=== PATIENT | female | born 1940 | race Caucasian/White ===

== ENCOUNTER 2017-07-26 08:57 | Observation (INO) | payer MEDICARE, BC ==
[2017-07-26] MEDS ORDERED: ASPIRIN 81 MG CHEWABLE TABLET PO ONE (09:17)
[2017-07-26] MEDS ORDERED: NITROGLYCERIN 0.4MG SL TABLET #25 BTL SL PRN ×2 (09:17→13:50)
[2017-07-26 09:35] LABS: BASO % 0.7 % (0-6); EOS % 2.6 % (0-6); GRAN % 68.2 % (47-80); HEMATOCRIT 31.7 % (35.0-47.0); HEMOGLOBIN 10.6 gm/dl (11.6-16.0); LYMPH % 18.8 % (16-45); MEAN CELL VOLUME 97.5 fl (81-97); MEAN CORPUSCULAR HEMOGLOBIN 32.6 pg (27-33); MEAN CORPUSCULAR HGB CONC 33.4 g/dl (32-36); MEAN PLATELET VOLUME 8.4 fl (7.4-10.4); MONO % 9.7 % (0-9); PLATELET COUNT 252 K/uL (130-400); RED BLOOD COUNT 3.25 M/uL (3.80-5.40); RED CELL DISTRIBUTION WIDTH 14.5 % (11.5-14.5); WHITE BLOOD COUNT W/O DIFF 4.3 K/uL (4.2-12.2)
[2017-07-26 09:45] LABS: BLOOD UREA NITROGEN 16 mg/dL (8-23); CREATININE 0.8 mg/dL (0.5-0.9); EST GLOMERULAR FILTRATION RATE > 60 mL/min
[2017-07-26 09:46] LABS: INR 2.41; PROTHROMBIN TIME (PATIENT) 26.3 SECONDS (9.5-12.1)
[2017-07-26 09:48] LABS: GLUCOSE,RANDOM 109 mg/dL (74-109)
[2017-07-26 09:51] LABS: CREATINE PHOSPHOKINASE 145 U/L (26-192)
[2017-07-26 09:53] LABS: CKMB 3.2 ng/mL (<3.77)
--- NOTE | 2017-07-26 11:32 | Emergency Department Record ---
History of Present Illness - General Chief Complaint: Chest Pain Stated Complaint: LEFT SHOULDER/ARM PAIN Time Seen by Provider: 07/26/17 09:03 Source: Patient Mode of Arrival: Ambulatory Limitations: No limitations - History of Present Illness Initial Comments: pt has been having intermittant cp for a week that radiates down her arm. she has never had anything like this before. she has no n/sob/sweats. she has had a pacer for 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 Complaint: Chest pain Onset/Timin -: Week(s) Onset: Other Pain Location: Substernal, Left chest, Right chest Pain Radiation: LUE Consistency: Intermittent Improves With: Nothing Worsens With: Nothing Treatments Prior to Arrival: None - Related Data Previous Rx's Medication Instructions Recorded Lisinopril [Zestril] 10 mg PO DAILY #30 tablet 10/03/14 Allergies Allergy/AdvReac Type Severity Reaction Status Date / Time indapamide [From LOZOL] Allergy Intermediate RASH Verified 07/12/16 10:36 propoxyphene napsylate Allergy Mild RASH Verified 07/12/16 10:36 [From DARVOCET-N 100] Travel Screening - Travel/Exposure Within Last 30 Days Have you traveled within the last 30 days?: No - Travel/Exposure Within Last Year Have you traveled outside the [place] in the last year?: No - Additonal Travel Details Have you been exposed to anyone with a communicable illness?: No - Travel Symptoms Symptom Screening: None Review of Systems Reviewed: No additional complaints except as noted below Constitutional: Reports: As per HPI. Denies: Chills, Fever, Malaise, Night sweats, Weakness, Weight change Eyes: Reports: As per HPI. Denies: Eye discharge, Eye pain, Photophobia, Vision change ENT: Reports: As per HPI. Denies: Congestion, Dental pain, Ear pain, Epistaxis , Hearing loss, Throat pain Respiratory: Reports: As per HPI. Denies: Cough, Dyspnea, Hemoptysis, Stridor, Wheezes Cardiovascular: Reports: As per HPI. Denies: Arrhythmia, Chest pain, Dyspnea on exertion, Edema, Murmurs, Orthopnea, Palpitations, Paroxysmal nocturnal dyspnea, Rheumatic Fever, Syncope Endocrine: Reports: As per HPI. Denies: Fatigue, Heat or cold intolerance, Polydipsia, Polyuria Gastrointestinal: Reports: As per HPI. Denies: Abdominal pain, Constipation, Diarrhea, Hematemesis, Hematochezia, Melena, Nausea, Vomiting Genitourinary: Reports: As per HPI. Denies: Abnormal menses, Discharge, Dyspareunia, Dysuria, Frequency, Hematuria, Incontinence, Retention, Urgency Musculoskeletal: Reports: As per HPI. Denies: Arthralgia, Back pain, Gout, Joint swelling, Myalgia, Neck pain Skin: Reports: As per HPI. Denies: Bruising, Change in color, Change in hair/ nails, Lesions, Pruritus, Rash Neurological: Reports: As per HPI. Denies: Abnormal gait, Confusion, Headache, Numbness, Paresthesias, Seizure, Tingling, Tremors, Vertigo, Weakness Psychiatric: Reports: As per HPI. Denies: Anxiety, Auditory hallucinations, Depression, Homicidal thoughts, Suicidal thoughts, Visual hallucinations Hematological/Lymphatic: Reports: As per HPI. 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 - RESPIRATORY Hx Respiratory Disorders: No - CARDIOVASCULAR Hx Cardio Disorders: Yes Hx Chest Pain: Yes Hx CHF: Yes Hx Pacemaker/Defib: Yes Comment:: afib - NEURO Hx Neuro Disorders: No - GI Hx GI Disorders: No - Hx Genitourinary Disorders: Yes Hx UTI: Yes - ENDOCRINE Hx Endocrine Disorders: Yes Hx Thyroid Disease: Yes (hypo) - MUSCULOSKELETAL Hx Musculoskeletal Disorders: Yes Hx Arthritis: Yes Comment:: injections in back - PSYCH Hx Psych Problems: No - HEMATOLOGY/ONCOLOGY Hx Hematology/Oncology Disorders: No Family Medical History Any Significant Family History?: No Hx Heart Disease: Father, Mother Physical Exam - General General Appearance: Alert, Oriented x3, Cooperative, Mild distress - Head Head exam: Normal inspection - Eye Eye exam: Normal appearance, PERRL, EOMI Pupils: Normal accommodation - ENT ENT exam: Normal exam, Mucous membranes moist, Normal external ear exam, Normal orophraynx Ear exam: Normal external inspection. negative: External canal tenderness Nasal Exam: Normal inspection. negative: Discharge, Sinus tenderness Mouth exam: Normal external inspection, Tongue normal Teeth exam: Normal inspection. negative: Dental caries Throat exam: Normal inspection. negative: Tonsillar erythema, Tonsillar exudate - Neck Neck exam: Normal inspection, Full ROM. negative: Tenderness - Respiratory Respiratory exam: Normal lung sounds bilaterally. negative: Respiratory distress - Cardiovascular Cardiovascular Exam: Regular rate, Normal rhythm, Normal heart sounds - GI/Abdominal GI/Abdominal exam: Soft, Normal bowel sounds. negative: Tenderness - Rectal Rectal exam: Deferred - exam: Deferred - Extremities Extremities exam: Normal inspection, Full ROM, Normal capillary refill. negative: Tenderness - Back Back exam: Reports: Normal inspection, Full ROM. Denies: Muscle spasm, Rash noted, Tenderness - Neurological Neurological exam: Alert, CN II-XII intact, Normal gait, Oriented X3 - Psychiatric Psychiatric exam: Normal affect, Normal mood - Skin Skin exam: Dry, Intact, Normal color, Warm Course Vital Signs 07/26/17 07/26/17 07/26/17 09:02 09:31 09:37 Temperature 98.3 F Pulse Rate 73 Pulse Rate [ 71 73 Pulse Ox Probe] Respiratory 20 18 18 Rate Blood Pressure 177/99 Blood Pressure 152/84 99/66 [Left Arm] Pulse Ox 98 97 97 07/26/17 09:43 Temperature Pulse Rate Pulse Rate [ 70 Pulse Ox Probe] Respiratory 18 Rate Blood Pressure Blood Pressure 137/81 [Left Arm] Pulse Ox 97 - Reevaluation(s) Reevaluation #1: 07/26/17 11:30 pts pain got better w ntg. pressure dropped to 95/, fluid bolus given Medical Decision Making - Lab Data Result diagrams: 07/26/17 09:24 07/26/17 09:24 Lab Results 07/26/17 07/26/17 07/26/17 Range/Units 09:24 09:24 09:24 WBC 4.3 (4.2-12.2) K/uL RBC 3.25 L (3.80-5.40) M/uL Hgb 10.6 L (11.6-16.0) gm/dl Hct 31.7 L (35.0-47.0) % MCV 97.5 H (81-97) fl MCH 32.6 (27-33) pg MCHC 33.4 (32-36) g/dl RDW 14.5 (11.5-14.5) % Plt Count 252 (130-400) K/uL MPV 8.4 (7.4-10.4) fl Gran % 68.2 (47-80) % Lymphocytes % 18.8 (16-45) % Monocytes % 9.7 H (0-9) % Eosinophils % 2.6 (0-6) % Basophils % 0.7 (0-6) % PT (9.5-12.1) SECONDS INR D-Dimer 3.95 H (0-0.59) mg/L FEU Sodium 137 (136-145) mmol/L Potassium 3.7 (3.4-4.5) mmol/L Chloride 98 (98-107) mmol/L Carbon Dioxide 24.0 (22-29) mmol/L Anion Gap 15.0 (7-16) BUN 16 (8-23) mg/dL Creatinine 0.8 (0.5-0.9) mg/dL Estimated GFR > 60 mL/min Random Glucose 109 (74-109) mg/dL Calcium 9.0 (8.8-10.2) mg/dL Creatine Kinase 145 (26-192) U/L CK-MB (CK-2) 3.2 (<3.77) ng/mL Troponin T < 0.010 (0-0.010) ng/mL 07/26/17 Range/Units 09:24 WBC (4.2-12.2) K/uL RBC (3.80-5.40) M/uL Hgb (11.6-16.0) gm/dl Hct (35.0-47.0) % MCV (81-97) fl MCH (27-33) pg MCHC (32-36) g/dl RDW (11.5-14.5) % Plt Count (130-400) K/uL MPV (7.4-10.4) fl Gran % (47-80) % Lymphocytes % (16-45) % Monocytes % (0-9) % Eosinophils % (0-6) % Basophils % (0-6) % PT 26.3 H (9.5-12.1) SECONDS INR 2.41 D-Dimer (0-0.59) mg/L FEU Sodium (136-145) mmol/L Potassium (3.4-4.5) mmol/L Chloride (98-107) mmol/L Carbon Dioxide (22-29) mmol/L Anion Gap (7-16) BUN (8-23) mg/dL Creatinine (0.5-0.9) mg/dL Estimated GFR mL/min Random Glucose (74-109) mg/dL Calcium (8.8-10.2) mg/dL Creatine Kinase (26-192) U/L CK-MB (CK-2) (<3.77) ng/mL Troponin T (0-0.010) ng/mL Disposition Disposition: Admit Clinical Impression: Chest pain Qualifiers: Chest pain type: other chest pain Qualified Code(s): R07.89 - Other chest pain ; R07.8 - Other chest pain Disposition: Still a Patient at [facility] Decision to Admit: Admit from ER Decision to Admit Date: 07/26/17 Decision to Admit Time: 11:33 Quality - Quality Measures Quality Measures: N/A - Blood Pressure Screening Does Patient Have Any of the Following: Active Dx of HTN Blood Pressure Classification: Hypertensive Reading Systolic Measurement: 177 Diastolic Measurement: 99 Screening for High Blood Pressure: Patient Exclusion, Hx of HTN [G9744]
--- NOTE | 2017-07-26 15:06 | CT ANGIOGRAM REPORT ---
EXAM: CHEST CTA WITH CONTRAST WITH POST PROCESSING FOR PE HISTORY: CHEST PAIN, ELEVATED D-DIMER, POSSIBLE PE. TECHNIQUE: CTA of the chest was performed following the intravenous administration of 63 ml of Omnipaque 350 as the IV contrast. Post processing on an independent workstation was performed with multiple 3D MIP series obtained. Comparison: Prior chest CT dated 04/28/11. FINDINGS: No definite PE identified. No thoracic aortic aneurysm or dissection is seen. Surgical clips are again seen in the gallbladder fossa consistent with prior cholecystectomy. Small hiatal hernia. No definite hilar or mediastinal adenopathy identified. Some coronary artery calcification is present. No pleural effusion evident. Small amount of pericardial fluid in the superior pericardial recess. Hypertrophic spurring in the spine. There is a battery pack in the left anterior chest wall consistent with a pacemaker with associated electrode leads extending into the right side of the heart. These are new compared to the prior study. IMPRESSION: 1. NO DEFINITE PE IDENTIFIED. 2. PACEMAKER IN PLACE, NEW SINCE 04/28/11. 3. SMALL HIATAL HERNIA. 4. POSTOP CHOLECYSTECTOMY. JOB NUMBER: [id number] MTDD
[2017-07-26] MEDS ORDERED: TYLENOL 500 MG PO PRN (16:31)
[2017-07-26 17:57] LABS: CKMB 2.7 ng/mL (<3.77)
[2017-07-26] MEDS ORDERED: WARFARIN 5 MG TAB PO SCH (22:00)
[2017-07-26] MEDS ORDERED: ATORVASTATIN 20 MG TABLET PO SCH (22:00)
--- NOTE | 2017-07-26 22:06 | History & Physical ---
History of Present Illness - Date of Service Date of Service for History & Physical: 07/26/17 - History of Present Illness Admitting Diagnosis: chest pain History of Present Illness: 77yo female with CC of pain in her left arm. she has history of CHF, afib, pacemaker in place, hypothyroidism, arthritis. Patient states for the past week she has had intermittent pain in her left arm. She has chronic left shoulder pain due to arthritis and has an ortho appointment already set up to discuss replacement. she says sometime this week she developed some new pain lower in her left forearm that was aching. She also was having some intermittent sharp, fleeting pain that she said would start in the right side of her chest and radiate briefly to the left. She decided to come in to the ED because of the new left forearm pain. While in the ED, patient had EKG that was unchanged from previous and no ST changes. 1st set of CE returned wnl. Hgb of 10.6, CMP unremarkable. Her Ddimer was elevated at 3.95 and she underwent CTA of the chest which showed mild coronary artery calcifications, small hiatal hernia and pacemaker. She was admitted for serial enzymes. 07/26/17- Patient states she is feeling well now. she denies any more pain in her forearm and that her pain in the left shoulder is improved with tylenol. she denies any chest pain, shortness of breath, upper respiratory symptoms. She has not had any leg swelling or difficulty lying or sleeping flat. 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 Madsen, on 07/31/17. pcp: emily cardio: Dr. Madsen Travel Screening - Travel/Exposure Within Last 30 Days Have you traveled within the last 30 days?: No - Travel/Exposure Within Last Year Have you traveled outside the [place] in the last year?: No - Additonal Travel Details Have you been exposed to anyone with a communicable illness?: No - Travel Symptoms Symptom Screening: None Review of Systems Constitutional: Reports: As per HPI. Denies: Chills, Fever, Malaise, Night sweats, Weakness, Weight change Eyes: Reports: As per HPI. Denies: Eye discharge, Eye pain, Photophobia, Vision change ENT: Reports: As per HPI. Denies: Congestion, Dental pain, Ear pain, Epistaxis , Hearing loss, Throat pain Respiratory: Reports: As per HPI. Denies: Cough, Dyspnea, Hemoptysis, Stridor, Wheezes Cardiovascular: Reports: As per HPI. Denies: Arrhythmia, Chest pain, Dyspnea on exertion, Edema, Murmurs, Orthopnea, Palpitations, Paroxysmal nocturnal dyspnea, Rheumatic Fever, Syncope Endocrine: Reports: As per HPI. Denies: Fatigue, Heat or cold intolerance, Polydipsia, Polyuria Gastrointestinal: Reports: As per HPI. Denies: Abdominal pain, Constipation, Diarrhea, Hematemesis, Hematochezia, Melena, Nausea, Vomiting Genitourinary: Reports: As per HPI. Denies: Abnormal menses, Discharge, Dyspareunia, Dysuria, Frequency, Hematuria, Incontinence, Retention, Urgency Musculoskeletal: Reports: As per HPI. Denies: Arthralgia, Back pain, Gout, Joint swelling, Myalgia, Neck pain Skin: Reports: As per HPI. Denies: Bruising, Change in color, Change in hair/ nails, Lesions, Pruritus, Rash Neurological: Reports: As per HPI. Denies: Abnormal gait, Confusion, Headache, Numbness, Paresthesias, Seizure, Tingling, Tremors, Vertigo, Weakness Psychiatric: Reports: As per HPI. Denies: Anxiety, Auditory hallucinations, Depression, Homicidal thoughts, Suicidal thoughts, Visual hallucinations Hematological/Lymphatic: Reports: As per HPI. 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 - RESPIRATORY Hx Respiratory Disorders: No - CARDIOVASCULAR Hx Cardio Disorders: Yes Hx Chest Pain: Yes Hx CHF: Yes Hx Pacemaker/Defib: Yes Comment:: afib - NEURO Hx Neuro Disorders: No - GI Hx GI Disorders: No - Hx Genitourinary Disorders: Yes Hx UTI: Yes - ENDOCRINE Hx Endocrine Disorders: Yes Hx Thyroid Disease: Yes (hypo) - MUSCULOSKELETAL Hx Musculoskeletal Disorders: Yes Hx Arthritis: Yes Comment:: injections in back - PSYCH Hx Psych Problems: No - HEMATOLOGY/ONCOLOGY Hx Hematology/Oncology Disorders: No Family Medical History Any Significant Family History?: Yes Hx Heart Disease: Father, Mother H&P Meds/Allergies - Allergies Allergies: Allergies Allergy/AdvReac Type Severity Reaction Status Date / Time indapamide [From LOZOL] Allergy Intermediate RASH Verified 07/12/16 10:36 propoxyphene napsylate Allergy Mild RASH Verified 07/12/16 10:36 [From DARVOCET-N 100] - Home Medications Home Medications Medication Instructions Recorded Confirmed Last Taken Lisinopril [Lisinopril] 10 mg PO QHS 07/26/17 07/26/17 Unknown - Active Medications Active Medications: Current Medications Amiodarone HCl (Pacerone) 200 mg PO DAILY [facility] Aspirin (Ecotrin (Ec)) 325 mg PO DAILY [facility] Atorvastatin Calcium (Lipitor) 20 mg PO QHS [facility] Carvedilol (Coreg) 3.125 mg PO BID [facility] Levothyroxine Sodium (Synthroid) 75 mcg PO DAILYTHY [facility] Lisinopril (Zestril) 10 mg PO QHS [facility] Nitroglycerin (Nitrostat 0.4mg) 0.4 mg SL Q5MIN PRN PRN Reason: CHEST PAIN Patient Own Med: (Tylenol 500mg) 2 each PO Q6H PRN PRN Reason: Pain - General Last Admin: 07/26/17 16:33 Dose: 2 each Warfarin Sodium (Coumadin) 2.5 mg PO QHS [facility] Physical Exam - Vital Signs Vital Signs: Vital Signs - Last 24 Hrs Temp Pulse Pulse Resp BP BP Pulse Ox 07/26/17 21:00 97.9 F 70 20 138/68 94 L 07/26/17 16:07 18 07/26/17 15:50 98.1 F 72 16 126/71 97 07/26/17 14:15 98.1 F 73 18 161/88 96 07/26/17 13:50 97.2 F L 76 18 183/95 98 07/26/17 13:11 70 16 157/85 98 - General General Appearance: Alert, Oriented x3, Cooperative, No acute distress Limitations: No limitations - Head Head exam: Normal inspection - Eye Eye exam: Normal appearance, PERRL, EOMI Pupils: Normal accommodation - ENT ENT exam: Normal exam, Mucous membranes moist, Normal external ear exam, Normal orophraynx Ear exam: Normal external inspection. negative: External canal tenderness Nasal Exam: Normal inspection. negative: Discharge, Sinus tenderness Mouth exam: Normal external inspection, Tongue normal Teeth exam: Normal inspection. negative: Dental caries Throat exam: Normal inspection. negative: Tonsillar erythema, Tonsillar exudate - Neck Neck exam: Normal inspection, Full ROM. negative: Tenderness - Respiratory Respiratory exam: Normal lung sounds bilaterally. negative: Respiratory distress - Cardiovascular Cardiovascular Exam: Regular rate, Normal rhythm (paced), Systolic murmur - GI/Abdominal GI/Abdominal exam: Soft, Normal bowel sounds. negative: Tenderness - Rectal Rectal exam: Deferred - exam: Deferred - Extremities Extremities exam: Normal inspection, Full ROM, Normal capillary refill. negative: Tenderness - Back Back exam: Reports: Normal inspection, Full ROM. Denies: Muscle spasm, Rash noted, Tenderness - Neurological Neurological exam: Alert, CN II-XII intact, Normal gait, Oriented X3 - Psychiatric Psychiatric exam: Normal affect, Normal mood - Skin Skin exam: Dry, Intact, Normal color, Warm Results - Labs Result Diagrams: 07/26/17 09:24 07/26/17 09:24 Labs Last 24 Hours: Laboratory Results - last 24 hr 07/26/17 17:32 CK-MB (CK-2) 2.7 Troponin T < 0.010 VTE H&P Assessment - Risk for VTE Risk for VTE: Yes Risk Level: High Risk Assessment Date: 07/26/17 Risk Assessment Time: 22:08 VTE Orders Placed or Will Be Placed: Yes Plan - Detailed Diagnosis and Plan (1) Chest pain, rule out acute myocardial infarction Current Visit: Yes Status: Acute Base Code: R07.9 - CHEST PAIN, UNSPECIFIED Comment: 07/26/17- Patient is currently pain free, and was having left sided shoulder pain rather than true chest pain. EKG was negative for ischemic changes and unchanged from previous. 1st and 2nd set of CE returned within normal. DDimer was elevated at 3.95 so patient underwent CTA of the chest which showed mild coronary artery calcifications along with small hiatal hernia and pacemaker in place. -continue tele -continue serial enzymes -vitals q8H (2) DVT prophylaxis Current Visit: No Status: Acute Base Code: [id number] - Comment: 07/26/17- continue patient's home coumadin (3) Full code status Current Visit: No Status: Acute Base Code: Z78.9 - OTHER SPECIFIED HEALTH STATUS Comment: 07/26/17- Patient is full code
[2017-07-26] MEDS: CARVEDILOL 3.125 MG TABLET PO SCH (22:29)
[2017-07-27 01:43] LABS: CKMB 2.2 ng/mL (<3.77)
[2017-07-27] MEDS ORDERED: LEVOTHYROXINE SODIUM 75 MCG TABLET PO SCH (07:00)
--- NOTE | 2017-07-27 08:10 | Discharge Summary ---
Providers Discharge Summary Date: 07/27/17 Date of admission: 07/26/17 12:42 Expected Date of Discharge: 07/27/17 Attending physician: Alexander Kasper Primary care physician: VINICIUS GAXIOLA D.O. Physical Exam - Vital Signs Vital Signs: Vital Signs - Last 24 Hrs Temp Pulse Pulse Resp BP BP Pulse Ox 07/27/17 07:51 97.9 F 71 18 156/85 96 07/27/17 05:00 98.4 F 71 16 158/85 96 07/27/17 00:51 97.8 F 82 18 144/84 96 07/26/17 21:00 97.9 F 70 20 138/68 94 L 07/26/17 16:07 18 07/26/17 15:50 98.1 F 72 16 126/71 97 07/26/17 14:15 98.1 F 73 18 161/88 96 07/26/17 13:50 97.2 F L 76 18 183/95 98 07/26/17 13:11 70 16 157/85 98 - General General Appearance: Alert, Oriented x3, Cooperative, No acute distress Limitations: No limitations - Head Head exam: Normal inspection - Eye Eye exam: Normal appearance, PERRL, EOMI Pupils: Normal accommodation - ENT ENT exam: Normal exam, Mucous membranes moist, Normal external ear exam, Normal orophraynx Ear exam: Normal external inspection. negative: External canal tenderness Nasal Exam: Normal inspection. negative: Discharge, Sinus tenderness Mouth exam: Normal external inspection, Tongue normal Teeth exam: Normal inspection. negative: Dental caries Throat exam: Normal inspection. negative: Tonsillar erythema, Tonsillar exudate - Neck Neck exam: Normal inspection, Full ROM. negative: Tenderness - Respiratory Respiratory exam: Normal lung sounds bilaterally. negative: Respiratory distress - Cardiovascular Cardiovascular Exam: Regular rate, Normal rhythm (paced), Systolic murmur - GI/Abdominal GI/Abdominal exam: Soft, Normal bowel sounds. negative: Tenderness - Rectal Rectal exam: Deferred - exam: Deferred - Extremities Extremities exam: Normal inspection, Full ROM, Normal capillary refill. negative: Tenderness - Back Back exam: Reports: Normal inspection, Full ROM. Denies: Muscle spasm, Rash noted, Tenderness - Neurological Neurological exam: Alert, CN II-XII intact, Normal gait, Oriented X3 - Psychiatric Psychiatric exam: Normal affect, Normal mood - Skin Skin exam: Dry, Intact, Normal color, Warm Hospitalization - Hospitalization Admission Diagnosis: chest pain - Problem List/Discharge Diagnosis (1) Chest pain, rule out acute myocardial infarction Current Visit: Yes Status: Acute Base Code: R07.9 - CHEST PAIN, UNSPECIFIED Comment: 07/27/17- Patient is currently pain free, and was having left sided shoulder pain rather than true chest pain. EKG was negative for ischemic changes and unchanged from previous. all 3 sets of CE returned within normal. DDimer was elevated at 3.95 so patient underwent CTA of the chest which showed mild coronary artery calcifications along with small hiatal hernia and pacemaker in place. -plan to discharge home today. patient has follow up with her business transformation manager, Dr. Madsen, on 08/02/17 (2) Loose stools Current Visit: Yes Status: Acute Base Code: R19.5 - OTHER FECAL ABNORMALITIES Comment: 07/27/17- intermittent loose stool since 07/18/17. No abdominal pain associated. No nausea/vomiting, fevers, chills or decreased appetite. no recent abx use or hospitalizations. -will order stool culture. If unable to leave sample prior to DC will send home with hat and have her return sample to the lab. will get her scheduled with Dr. Gaxiola for follow up of the loose stools. I did ask that she return to the ED if she feels her symptoms are getting worse, has abdominal pain, inability to tolerate fluids, or fever. (3) DVT prophylaxis Current Visit: No Status: Acute Base Code: [id number] - Comment: 07/27/17- continue patient's home coumadin (4) Full code status Current Visit: No Status: Acute Base Code: Z78.9 - OTHER SPECIFIED HEALTH STATUS Comment: 07/27/17- Patient is full code - Hospitalization Course Disposition: Home, Self-Care Hospital Course: 77yo female with CC of pain in her left arm. she has history of CHF, afib, pacemaker in place, hypothyroidism, arthritis. Patient states for the past week she has had intermittent pain in her left arm. She has chronic left shoulder pain due to arthritis and has an ortho appointment already set up to discuss replacement. she says sometime this week she developed some new pain lower in her left forearm that was aching. She also was having some intermittent sharp, fleeting pain that she said would start in the right side of her chest and radiate briefly to the left. She decided to come in to the ED because of the new left forearm pain. While in the ED, patient had EKG that was unchanged from previous and no ST changes. 1st set of CE returned wnl. Hgb of 10.6, CMP unremarkable. Her Ddimer was elevated at 3.95 and she underwent CTA of the chest which showed mild coronary artery calcifications, small hiatal hernia and pacemaker. She was admitted for serial enzymes. 07/26/17- Patient states she is feeling well now. she denies any more pain in her forearm and that her pain in the left shoulder is improved with tylenol. she denies any chest pain, shortness of breath, upper respiratory symptoms. She has not had any leg swelling or difficulty lying or sleeping flat. She has an appointment with her business transformation manager, Dr. Madsen, on 07/31/17. 07/27/17- Patient states she has not had any more pain in her left shoulder or forearm since receiving tylenol. She denies any chest pain, shortness of breath , dizziness. She had a loose stool this morning. states she has had intermittent loose stool since . No abdominal pain, no recent antibiotics. no nausea or vomiting, fevers, or chills. pcp: emily cardio: Dr. Madsen Condition at Discharge: (2) Stable Discharge Medications - Discharge Medications Home Medications: Ambulatory Orders Calcium Carbonate/Vitamin D3 [Calcium 600 + Vit D Tablet] 1 each PO DAILY [Last Taken 07/26/17] Cholecalciferol (Vitamin D3) [Vitamin D3] 1,000 unit PO DAILY 10/01/14 [Last Taken 07/26/17] Glucosam/Trent-Msm1/C/Lio/Bosw [Osteo Bi-Flex] 1 tab PO DAILY 10/01/14 [Last Taken 07/26/17] [place]-3/Dha/Epa/Fish Oil [Fish Oil Dr 500 mg Softgel] 1,000 mg PO DAILY [Last Taken 07/26/17] Warfarin Sodium 2.5 mg PO QHS 10/01/14 [Last Taken 07/25/17] Amiodarone HCl [Pacerone] 200 mg PO DAILY 10/02/14 [Last Taken 07/25/17] Atorvastatin Calcium [Lipitor] 20 mg PO QHS 05/05/15 [Last Taken 07/25/17] Carvedilol [Coreg] 3.125 mg PO BID 05/05/15 [Last Taken 07/26/17] Levothyroxine Sodium [Synthroid] 75 mcg PO DAILY 05/05/15 [Last Taken 07/26/17] Lisinopril 10 mg PO QHS 07/26/17 [Last Taken Unknown] Discharge Plan - Discharge Instructions Activity at Discharge: Resume Usual Activities As Tolerated Diet at Discharge: Low Fat, Low Cholesterol, Low Salt Diet Additional Instructions: Follow up with Dr. Madsen on 08/02/17 as scheduled Follow up with Dr. Salas, orthopedics, for your left shoulder as scheduled on Resume your home medications May take tylenol as needed for joint pain Please call with any questions or concerns Return to ED if any new or worsening symptoms Quality Measures - Quality Measures Quality Measures: Advance Directives, Documentation of Current Medications in Medical Record, Elder Maltreatment Screen and Follow-Up Plan, Screening for High Blood Pressure and F/U Documented - Current Medications Quality Measure: Measure #130: Documentation of Current Medications Documentation of Current Medications: <Current Medications Documented/Reviewed> [G8474] - Blood Pressure Screening Quality Measure: Screening for High Blood Pressure and Follow-Up Documented Does Patient Have Any of the Following: Active Dx of HTN Blood Pressure Classification: Pre-Hypertensive BP Reading Systolic Measurement: 157 Diastolic Measurement: 85 Screening for High Blood Pressure: Patient Exclusion, Hx of HTN [G9744] - Advance Directives Quality Measure: Measure #47: Care Plan Advance Directives Established: No Advance Directives Information Provided To Patient: No Advance Directives on File: No Living Will: No Power of Photographic Specialist: No Power of Photographic Specialist Name: Guzman Flower Advance Care Planning: <Care Plan/Decision Maker Not Decided; Discussed & Documented> [[id number]] - Elder Abuse Suspicion Index Screening: Elder Abuse Suspicion Index Screening Rely on people for bathing, dressing, shopping, banking, etc: No Prevented from getting food, clothes, medication, etc: No Made to feel shamed or threatened by someone: No Forced to sign papers or use money against will: No Feel afraid, touched in ways not wanted or hurt physically: No Poor eye contact, withdrawn, malnourished, cuts or bruises: No Screening Result: Negative result EASI Reference Information: Tyler GARRIDO, Eduard C, Jayson D, Gisel Reynaga.Development and validation of a tool to assist physicians identification of elder abuse: The Elder Abuse Suspicion Index (EASI ). Journal of Elder Abuse and Neglect, 2008; 20 (3): 276-300. - Elder Maltreatment Screen Quality Measures: Elder Maltreatment Screen and Follow-Up Plan Elder Maltreatment Screen: <Negative, No Follow-Up Plan Required> [G1841]
[2017-07-27] MEDS ORDERED: AMIODARONE HCL 200 MG TABLET PO SCH (10:00)
[2017-07-27] MEDS ORDERED: ASPIRIN 325 MG TAB ENTERIC-COATED PO SCH (10:00)
[2017-07-27] MEDS: CARVEDILOL 3.125 MG TABLET PO SCH (10:05)
[2017-07-27] MEDS ORDERED: LISINOPRIL 10 MG TABLET PO SCH (22:00)
== END 2017-07-27 13:10 | disposition home or self-care (01) ==
LOC: ER 08:57 → MEDSURG 12:42
PROVIDERS: ADMIT Internal Medicine; ATTEND Internal Medicine
DX: R07.9 Chest pain, unspecified (principal); K44.9 Diaphragmatic hernia without obstruction or gangrene; Z95.0 Presence of cardiac pacemaker; E03.9 Hypothyroidism, unspecified; I48.2 Chronic atrial fibrillation; Z79.01 Long term (current) use of anticoagulants; I50.9 Heart failure, unspecified
CPT/HCPCS: 99285 ×2; 82550; 85025; 85610; 82553 ×2; 80048; 87493; 84484 ×2; 85379; 71275; 94760 ×2; 93005 ×2; 93010; G0378 ×2; Q9967; 99217; 99220

== ENCOUNTER 2018-02-24 10:26 | Emergency (ER) | payer MEDICARE, BC ==
--- NOTE | 2018-02-24 10:58 | Emergency Department Record ---
History of Present Illness - General Chief Complaint: Fall Injury Stated Complaint: FELL 2 WEEKS AGO Time Seen by Provider: 02/24/18 10:53 Source: Patient Mode of Arrival: Wheelchair Limitations: No limitations - History of Present Illness Initial Comments: pt fell 2 wks ago hitting head on r. now she has an increasing hernandez on left. she is on coumadin. no vomiting. inr is 1.9 2 days ago. 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 Fall Witnessed: No Place Fall Occurred: Home Loss of Consciousness: None Prolonged Down Time?: No Symptoms Prior to Fall: Other Location: Head Severity: Mild Severity scale (1-10): 3 Quality: Aching Context: Other Associated Symptoms: Headache - [place]ney Coma Scale Eye Response: (4) Open spontaneously Motor Response: (6) Obeys commands Verbal Response: (5) Oriented Viviana Total: 15 - Related Data Allergies Allergy/AdvReac Type Severity Reaction Status Date / Time indapamide [From LOZOL] Allergy Intermediate RASH Verified 07/12/16 10:36 propoxyphene napsylate Allergy Mild RASH Verified 07/12/16 10:36 [From DARVOCET-N 100] Travel Screening - Travel/Exposure Within Last 30 Days Have you traveled within the last 30 days?: No Review of Systems Reviewed: No additional complaints except as noted below Constitutional: Reports: As per HPI. Denies: Chills, Fever, Malaise, Night sweats, Weakness, Weight change Eyes: Reports: As per HPI. Denies: Eye discharge, Eye pain, Photophobia, Vision change ENT: Reports: As per HPI. Denies: Congestion, Dental pain, Ear pain, Epistaxis , Hearing loss, Throat pain Respiratory: Reports: As per HPI. Denies: Cough, Dyspnea, Hemoptysis, Stridor, Wheezes Cardiovascular: Reports: As per HPI. Denies: Arrhythmia, Chest pain, Dyspnea on exertion, Edema, Murmurs, Orthopnea, Palpitations, Paroxysmal nocturnal dyspnea, Rheumatic Fever, Syncope Endocrine: Reports: As per HPI. Denies: Fatigue, Heat or cold intolerance, Polydipsia, Polyuria Gastrointestinal: Reports: As per HPI. Denies: Abdominal pain, Constipation, Diarrhea, Hematemesis, Hematochezia, Melena, Nausea, Vomiting Genitourinary: Reports: As per HPI. Denies: Abnormal menses, Discharge, Dyspareunia, Dysuria, Frequency, Hematuria, Incontinence, Retention, Urgency Musculoskeletal: Reports: As per HPI. Denies: Arthralgia, Back pain, Gout, Joint swelling, Myalgia, Neck pain Skin: Reports: As per HPI. Denies: Bruising, Change in color, Change in hair/ nails, Lesions, Pruritus, Rash Neurological: Reports: As per HPI. Denies: Abnormal gait, Confusion, Headache, Numbness, Paresthesias, Seizure, Tingling, Tremors, Vertigo, Weakness Psychiatric: Reports: As per HPI. Denies: Anxiety, Auditory hallucinations, Depression, Homicidal thoughts, Suicidal thoughts, Visual hallucinations Hematological/Lymphatic: Reports: As per HPI. Denies: Anemia, Blood Clots, Easy bleeding, Easy bruising, Swollen glands Past Medical History - SOCIAL HISTORY Smoking Status: Never smoker - JET HANDLER History JET HANDLER history: Reports: no JET HANDLER history - RESPIRATORY Hx Respiratory Disorders: No - CARDIOVASCULAR Hx Cardio Disorders: Yes Hx Chest Pain: Yes Hx CHF: Yes Hx Pacemaker/Defib: Yes Comment:: afib - NEURO Hx Neuro Disorders: No - GI Hx GI Disorders: No - Hx Genitourinary Disorders: Yes Hx UTI: Yes - ENDOCRINE Hx Endocrine Disorders: Yes Hx Thyroid Disease: Yes (hypo) - MUSCULOSKELETAL Hx Musculoskeletal Disorders: Yes Hx Arthritis: Yes Comment:: injections in back - PSYCH Hx Psych Problems: No - HEMATOLOGY/ONCOLOGY Hx Hematology/Oncology Disorders: No Family Medical History Any Significant Family History?: Yes Hx Heart Disease: Father, Mother Physical Exam - General General Appearance: Alert, Oriented x3, Cooperative, No acute distress - Head Head exam: Normal inspection Head exam detail: Contusion, Hematoma - Eye Eye exam: Normal appearance, PERRL, EOMI Pupils: Normal accommodation - ENT ENT exam: Normal exam, Mucous membranes moist, Normal external ear exam, Normal orophraynx Ear exam: Normal external inspection. negative: External canal tenderness Nasal Exam: Normal inspection. negative: Discharge, Sinus tenderness Mouth exam: Normal external inspection, Tongue normal Teeth exam: Normal inspection. negative: Dental caries Throat exam: Normal inspection. negative: Tonsillar erythema, Tonsillar exudate - Neck Neck exam: Normal inspection, Full ROM. negative: Tenderness - Respiratory Respiratory exam: Normal lung sounds bilaterally. negative: Respiratory distress - Cardiovascular Cardiovascular Exam: Regular rate, Normal rhythm, Normal heart sounds - GI/Abdominal GI/Abdominal exam: Soft, Normal bowel sounds. negative: Tenderness - Rectal Rectal exam: Deferred - exam: Deferred - Extremities Extremities exam: Normal inspection, Full ROM, Normal capillary refill. negative: Tenderness - Back Back exam: Reports: Normal inspection, Full ROM. Denies: Muscle spasm, Rash noted, Tenderness - Neurological Neurological exam: Alert, CN II-XII intact, Normal gait, Oriented X3 - Psychiatric Psychiatric exam: Normal affect, Normal mood - Skin Skin exam: Dry, Intact, Normal color, Warm Course Vital Signs 02/24/18 10:28 Pulse Rate 71 Respiratory 18 Rate Blood Pressure 179/90 Pulse Ox 96 - Reevaluation(s) Reevaluation #1: 02/24/18 12:[address] is neg Disposition Disposition: Discharge Clinical Impression: Concussion Qualifiers: Encounter type: initial encounter Loss of consciousness presence/duration: without LOC Qualified Code(s): S06.0X0A - Concussion without loss of consciousness, initial encounter Disposition: Home, Self-Care Condition: (1) Good Instructions: Fall Prevention for Older Adults (ED), Concussion (ED) Additional Instructions: follow up with family doctor. return sooner if worse. Forms: Patient Portal Access Quality - Quality Measures Quality Measures: N/A - Blood Pressure Screening Does Patient Have Any of the Following: Active Dx of HTN Blood Pressure Classification: Hypertensive Reading Systolic Measurement: 179 Diastolic Measurement: 90 Screening for High Blood Pressure: Patient Exclusion, Hx of HTN [G9744]
--- NOTE | 2018-02-25 14:55 | CT SCAN REPORT ---
DATE: 02/24/2018 at 11:15 a.m. COMPARISON: Head CT from 10/01/2014. EXAM: CT SCAN OF THE HEAD WITHOUT CONTRAST. HISTORY: Right-sided headache status post fall two weeks prior. Injury to left parietal region. The patient takes Warfarin for atrial fibrillation. TECHNIQUE: Noncontrast CT of the head. FINDINGS: No midline shift, mass effect, or intra- or extra-axial fluid collection seen. No cerebral edema, focal mass, or intracranial hemorrhage detected. Confluent periventricular and subcortical low-attenuation white matter appearance compatible with chronic small-vessel ischemic change, similar to prior. Ventricle sizes appear stable from prior. Basal cisterns are not effaced. The visualized paranasal sinuses and mastoid air cells are clear. No displaced calvarial fracture detected. IMPRESSION: 1. NO DEFINITE ACUTE INTRACRANIAL FINDINGS. 2. STABLE CHRONIC SMALL-VESSEL ISCHEMIC WHITE MATTER CHANGES. JOB NUMBER: [id number] MTDD
== END 2018-02-24 12:30 | disposition home or self-care (01) ==
LOC: ER 10:26
DX: S06.0X0A Concussion without loss of consciousness, initial encounter (principal); R51 Headache; I50.9 Heart failure, unspecified; I48.91 Unspecified atrial fibrillation; I10 Essential (primary) hypertension; Z79.01 Long term (current) use of anticoagulants; W18.00XA Striking against unspecified object with subsequent fall, initial encounter; Y92.009 Unspecified place in unspecified non-institutional (private) residence as the place of occurrence of the external cause
CPT/HCPCS: 70450; 99283

== ENCOUNTER 2018-07-23 07:01 | Emergency (ER) | payer MEDICARE, BC ==
[2018-07-23] MEDS ORDERED: ASPIRIN 81 MG CHEWABLE TABLET PO ONE (07:17)
[2018-07-23] MEDS ORDERED: NITROGLYCERIN 0.4MG SL TABLET #25 BTL SL PRN (07:17)
[2018-07-23 07:32] LABS: BASO % 1.1 % (0-6); EOS % 2.9 % (0-6); GRAN % 65.1 % (47-80); HEMATOCRIT 33.9 % (35.0-47.0); HEMOGLOBIN 10.9 gm/dl (11.6-16.0); LYMPH % 20.1 % (16-45); MEAN CELL VOLUME 96.6 fl (81-97); MEAN CORPUSCULAR HGB CONC 32.2 g/dl (32-36); MEAN PLATELET VOLUME 8.5 fl (7.4-10.4); MONO % 10.8 % (0-9); PLATELET COUNT 279 K/uL (130-400); RED BLOOD COUNT 3.51 M/uL (3.80-5.40); RED CELL DISTRIBUTION WIDTH 14.4 % (11.5-14.5); WHITE BLOOD COUNT W/O DIFF 3.8 K/uL (4.2-12.2)
--- NOTE | 2018-07-23 07:35 | Emergency Department Record ---
History of Present Illness - General Chief Complaint: Chest Pain Stated Complaint: NECK/LEFT SHOULDER PAIN Time Seen by Provider: 07/23/18 07:14 Source: Patient Mode of Arrival: Wheelchair Limitations: No limitations - History of Present Illness Initial Comments: pt developed l shoulder pain yesterday that gets worse w movement. she then had radiation of the pain into her neck and she became concerned it might be her heart MD Complaint: Chest pain Onset/Timin -: Hour(s) Onset: Other Pain Location: Other Pain Radiation: Other Severity: Moderate Severity scale (1-10): 8 Quality: Sharp Consistency: Intermittent Improves With: Remaining still Worsens With: Movement Treatments Prior to Arrival: None - Related Data Allergies Allergy/AdvReac Type Severity Reaction Status Date / Time indapamide [From LOZOL] Allergy Intermediate RASH Verified 07/23/18 07:10 propoxyphene napsylate Allergy Mild RASH Verified 07/23/18 07:10 [From DARVOCET-N 100] Travel Screening - Travel/Exposure Within Last 30 Days Have you traveled within the last 30 days?: No - Travel/Exposure Within Last Year Have you traveled outside the [place] in the last year?: No - Additonal Travel Details Have you been exposed to anyone with a communicable illness?: No - Travel Symptoms Symptom Screening: None Review of Systems Reviewed: No additional complaints except as noted below Constitutional: Reports: As per HPI. Denies: Chills, Fever, Malaise, Night sweats, Weakness, Weight change Eyes: Reports: As per HPI. Denies: Eye discharge, Eye pain, Photophobia, Vision change ENT: Reports: As per HPI. Denies: Congestion, Dental pain, Ear pain, Epistaxis , Hearing loss, Throat pain Respiratory: Reports: As per HPI. Denies: Cough, Dyspnea, Hemoptysis, Stridor, Wheezes Cardiovascular: Reports: As per HPI. Denies: Arrhythmia, Chest pain, Dyspnea on exertion, Edema, Murmurs, Orthopnea, Palpitations, Paroxysmal nocturnal dyspnea, Rheumatic Fever, Syncope Endocrine: Reports: As per HPI. Denies: Fatigue, Heat or cold intolerance, Polydipsia, Polyuria Gastrointestinal: Reports: As per HPI. Denies: Abdominal pain, Constipation, Diarrhea, Hematemesis, Hematochezia, Melena, Nausea, Vomiting Genitourinary: Reports: As per HPI. Denies: Abnormal menses, Discharge, Dyspareunia, Dysuria, Frequency, Hematuria, Incontinence, Retention, Urgency Musculoskeletal: Reports: As per HPI. Denies: Arthralgia, Back pain, Gout, Joint swelling, Myalgia, Neck pain Skin: Reports: As per HPI. Denies: Bruising, Change in color, Change in hair/ nails, Lesions, Pruritus, Rash Neurological: Reports: As per HPI. Denies: Abnormal gait, Confusion, Headache, Numbness, Paresthesias, Seizure, Tingling, Tremors, Vertigo, Weakness Psychiatric: Reports: As per HPI. Denies: Anxiety, Auditory hallucinations, Depression, Homicidal thoughts, Suicidal thoughts, Visual hallucinations Hematological/Lymphatic: Reports: As per HPI. Denies: Anemia, Blood Clots, Easy bleeding, Easy bruising, Swollen glands Past Medical History - SOCIAL HISTORY Smoking Status: Never smoker Alcohol Use: None Drug Use: None - PRIMER CHARGER History PRIMER CHARGER history: Reports: no PRIMER CHARGER history - RESPIRATORY Hx Respiratory Disorders: No - CARDIOVASCULAR Hx Cardio Disorders: Yes Hx Chest Pain: Yes Hx CHF: Yes Hx Pacemaker/Defib: Yes Comment:: afib - NEURO Hx Neuro Disorders: No - GI Hx GI Disorders: No - Hx Genitourinary Disorders: Yes Hx UTI: Yes - ENDOCRINE Hx Endocrine Disorders: Yes Hx Thyroid Disease: Yes (hypo) - MUSCULOSKELETAL Hx Musculoskeletal Disorders: Yes Hx Arthritis: Yes Comment:: injections in back - PSYCH Hx Psych Problems: No - HEMATOLOGY/ONCOLOGY Hx Hematology/Oncology Disorders: No Family Medical History Any Significant Family History?: Yes Hx Heart Disease: Father, Mother Physical Exam - General General Appearance: Alert, Oriented x3, Cooperative, Mild distress - Head Head exam: Normal inspection - Eye Eye exam: Normal appearance, PERRL, EOMI Pupils: Normal accommodation - ENT ENT exam: Normal exam, Mucous membranes moist, Normal external ear exam, Normal orophraynx Ear exam: Normal external inspection. negative: External canal tenderness Nasal Exam: Normal inspection. negative: Discharge, Sinus tenderness Mouth exam: Normal external inspection, Tongue normal Teeth exam: Normal inspection. negative: Dental caries Throat exam: Normal inspection. negative: Tonsillar erythema, Tonsillar exudate - Neck Neck exam: Normal inspection, Full ROM. negative: Tenderness - Respiratory Respiratory exam: Normal lung sounds bilaterally. negative: Respiratory distress - Cardiovascular Cardiovascular Exam: Regular rate, Normal rhythm, Systolic murmur - GI/Abdominal GI/Abdominal exam: Soft, Normal bowel sounds. negative: Tenderness - Rectal Rectal exam: Deferred - exam: Deferred - Extremities Extremities exam: Normal inspection, Full ROM, Normal capillary refill. negative: Tenderness - Back Back exam: Reports: Normal inspection, Full ROM. Denies: Muscle spasm, Rash noted, Tenderness - Neurological Neurological exam: Alert, CN II-XII intact, Normal gait, Oriented X3 - Psychiatric Psychiatric exam: Normal affect, Normal mood - Skin Skin exam: Dry, Intact, Normal color, Warm Course Vital Signs 07/23/18 07/23/18 07:07 07:11 Temperature 98.4 F 98.5 F Pulse Rate 81 Pulse Rate [ 82 Pulse Ox Probe] Respiratory 22 18 Rate Blood Pressure 193/100 Blood Pressure 193/100 [Left Arm] Pulse Ox 98 98 - Reevaluation(s) Reevaluation #1: 07/23/18 09:33 pts pain got better w ntg however bp dropped to 88/. ct is neg. 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
[2018-07-23 07:44] LABS: BLOOD UREA NITROGEN 12 mg/dL (8-23); CREATININE 0.8 mg/dL (0.5-0.9); EST GLOMERULAR FILTRATION RATE > 60 mL/min
[2018-07-23 07:45] LABS: TOTAL PROTEIN 7.4 g/dL (6.6-8.7)
[2018-07-23 07:46] LABS: INR 2.7; PROTHROMBIN TIME (PATIENT) 26.5 SECONDS (9.5-12.1)
[2018-07-23 07:47] LABS: GLUCOSE,RANDOM 94 mg/dL (74-109)
[2018-07-23 07:49] LABS: ALT/SGPT 34 U/L (<33)
[2018-07-23 07:50] LABS: ALB/GLOB RATIO 1.4 (1.1-1.8); ALBUMIN 4.3 g/dL (4.0-5.0); ALKALINE PHOSPHATASE 72 U/L (35-104); AST/SGOT 34 U/L (10.0-35.0); CREATINE PHOSPHOKINASE 126 U/L (26-192)
[2018-07-23 07:52] LABS: CKMB 2.8 ng/mL (<3.77)
[2018-07-23] MEDS ORDERED: 0.9 % SODIUM CHLORIDE 1,000 ML BAG IV ONE (09:36)
--- NOTE | 2018-07-23 22:42 | CT ANGIOGRAM REPORT ---
EXAM: CT ANGIOGRAM CHEST CTA w contrast HISTORY: LEFT NECK AND SHOULDER PAIN WELL RIB PAIN. THIS HAS BEEN PRESENT FOR A FEW HOURS. ELEVATED D-DIMER. EVALUATE FOR POSSIBLE PE. TECHNIQUE: Routine CT angiography images of the chest were obtained following intravenous administration of contrast. Amount and type of contrast in the medical record. 3D/MIP images obtained for further assessment. FINDINGS: There is mild cardiomegaly. No pericardial effusion. Aortic atherosclerosis. No central filling defects in the pulmonary arteries to suggest acute PE. No mediastinal or hilar lymph node enlargement. Left chest pacemaker is noted. The lungs demonstrate bibasilar atelectasis or scarring. No focal consolidation or pleural effusion. Visualized upper abdomen demonstrates cholecystectomy. Suggestion of a small hiatal hernia. No acute osseous abnormality. There is prominent degenerative changes within both glenohumeral joints. Calcified intraarticular body noted inferiorly on the right. IMPRESSION: 1. NO ACUTE INTRATHORACIC ABNORMALITY IDENTIFIED. SPECIFICALLY, NO EVIDENCE FOR PULMONARY EMBOLUS. 2. MILD BIBASILAR ATELECTASIS OR SCARRING. JOB NUMBER: [id number] MTDD
== END 2018-07-23 12:13 | disposition short-term general hospital (02) ==
LOC: ER 07:01
DX: R07.9 Chest pain, unspecified (principal); R79.89 Other specified abnormal findings of blood chemistry; M25.512 Pain in left shoulder; M54.2 Cervicalgia; I50.9 Heart failure, unspecified; I48.91 Unspecified atrial fibrillation
CPT/HCPCS: 99285 ×2; 82550; 85025; 85610; 82553; 80053; 84484; 85379; 83880; 71275; 93005; 93010; Q9967

== ENCOUNTER 2019-03-26 08:28 | Emergency (ER) | payer MEDICARE, BC ==
--- NOTE | 2019-03-26 09:04 | Emergency Department Record ---
History of Present Illness - General Chief complaint: Lower Extremity Pain Stated complaint: LT LEG PAIN Time Seen by Provider: 03/26/19 08:51 Source: Patient Mode of Arrival: Ambulatory Limitations: No limitations - History of Present Illness Initial comments: pt has been having intermittent sharp stabbing pains down the left leg. they are grabbing but are very quick. she denies back pain. she is on coumadin. she does not have swelling or palpable tenderness to leg MD Complaint: Extremity pain Onset/Timin -: Days(s) Location: Left, Lower Leg Quality: Sharp Consistency: Intermittent Improves with: Nothing Worsens with: Nothing - Related Data Allergies Allergy/AdvReac Type Severity Reaction Status Date / Time indapamide [From LOZOL] Allergy Intermediate RASH Verified 03/26/19 08:46 propoxyphene napsylate Allergy Mild RASH Verified 03/26/19 08:46 [From DARVOCET-N 100] Travel Screening - Travel/Exposure Within Last 30 Days Have you traveled within the last 30 days?: No - Travel/Exposure Within Last Year Have you traveled outside the [place] in the last year?: No - Additonal Travel Details Have you been exposed to anyone with a communicable illness?: No - Travel Symptoms Symptom Screening: None Review of Systems Reviewed: No additional complaints except as noted below Constitutional: Reports: As per HPI. Denies: Chills, Fever, Malaise, Night sweats, Weakness, Weight change Eyes: Reports: As per HPI. Denies: Eye discharge, Eye pain, Photophobia, Vision change ENT: Reports: As per HPI. Denies: Congestion, Dental pain, Ear pain, Epistaxis, Hearing loss, Throat pain Respiratory: Reports: As per HPI. Denies: Cough, Dyspnea, Hemoptysis, Stridor, Wheezes Cardiovascular: Reports: As per HPI. Denies: Arrhythmia, Chest pain, Dyspnea on exertion, Edema, Murmurs, Orthopnea, Palpitations, Paroxysmal nocturnal dyspnea, Rheumatic Fever, Syncope Endocrine: Reports: As per HPI. Denies: Fatigue, Heat or cold intolerance, Polydipsia, Polyuria Gastrointestinal: Reports: As per HPI. Denies: Abdominal pain, Constipation, Diarrhea, Hematemesis, Hematochezia, Melena, Nausea, Vomiting Genitourinary: Reports: As per HPI. Denies: Abnormal menses, Discharge, Dyspareunia, Dysuria, Frequency, Hematuria, Incontinence, Retention, Urgency Musculoskeletal: Reports: As per HPI. Denies: Arthralgia, Back pain, Gout, Joint swelling, Myalgia, Neck pain Skin: Reports: As per HPI. Denies: Bruising, Change in color, Change in hair/nails, Lesions, Pruritus, Rash Neurological: Reports: As per HPI. Denies: Abnormal gait, Confusion, Headache, Numbness, Paresthesias, Seizure, Tingling, Tremors, Vertigo, Weakness Psychiatric: Reports: As per HPI. Denies: Anxiety, Auditory hallucinations, Depression, Homicidal thoughts, Suicidal thoughts, Visual hallucinations Hematological/Lymphatic: Reports: As per HPI. 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 - RESPIRATORY Hx Respiratory Disorders: No - CARDIOVASCULAR Hx Cardio Disorders: Yes Hx Chest Pain: Yes Hx CHF: Yes Hx Pacemaker/Defib: Yes Comment:: afib - NEURO Hx Neuro Disorders: No - GI Hx GI Disorders: No - Hx Genitourinary Disorders: Yes Hx UTI: Yes - ENDOCRINE Hx Endocrine Disorders: Yes Hx Thyroid Disease: Yes (hypo) - MUSCULOSKELETAL Hx Musculoskeletal Disorders: Yes Hx Arthritis: Yes Comment:: injections in back - PSYCH Hx Psych Problems: No - HEMATOLOGY/ONCOLOGY Hx Hematology/Oncology Disorders: No Family Medical History Any Significant Family History?: No Hx Heart Disease: Father, Mother Physical Exam - General General Appearance: Alert, Oriented x3, Cooperative, No acute distress - Head Head exam: Normal inspection - Eye Eye exam: Normal appearance, PERRL, EOMI Pupils: Normal accommodation - ENT ENT exam: Normal exam, Mucous membranes moist, Normal external ear exam, Normal orophraynx Ear exam: Normal external inspection. negative: External canal tenderness Nasal Exam: Normal inspection. negative: Discharge, Sinus tenderness Mouth exam: Normal external inspection, Tongue normal Teeth exam: Normal inspection. negative: Dental caries Throat exam: Normal inspection. negative: Tonsillar erythema, Tonsillar exudate - Neck Neck exam: Normal inspection, Full ROM. negative: Tenderness - Respiratory Respiratory exam: Normal lung sounds bilaterally. negative: Respiratory distre ss - Cardiovascular Cardiovascular Exam: Regular rate, Normal rhythm, Normal heart sounds - GI/Abdominal GI/Abdominal exam: Soft, Normal bowel sounds. negative: Tenderness - Rectal Rectal exam: Deferred - exam: Deferred - Extremities Extremities exam: Normal inspection, Full ROM, Normal capillary refill. negative: Tenderness - Back Back exam: Reports: Normal inspection, Full ROM. Denies: Muscle spasm, Rash noted, Tenderness - Neurological Neurological exam: Alert, CN II-XII intact, Normal gait, Oriented X3 - Psychiatric Psychiatric exam: Normal affect, Normal mood - Skin Skin exam: Dry, Intact, Normal color, Warm Course Vital Signs 03/26/19 08:31 Temperature 98.3 F Pulse Rate 86 Respiratory 20 Rate Blood Pressure 172/102 Pulse Ox 97 hernandez - Reevaluation(s) Reevaluation #1: 03/26/19 11:15 pt has no tenderness or pain while in det. ct neg except severe arthritic changes Reevaluation #2: 03/26/19 11:18 pts inr is 2.6 and pain is intermittent so it is unlikely to be a clot 03/26/19 11:19 Medical Decision Making - Lab Data Result diagrams: 03/26/19 09:16 03/26/19 09:16 Disposition Disposition: Discharge Clinical Impression: Lumbar radiculopathy Anemia Qualifiers: Anemia type: iron deficiency Iron deficiency anemia type: unspecified iron deficiency Qualified Code(s): D50.9 - Iron deficiency anemia, unspecified Disposition: Home, Self-Care Condition: (1) Good Instructions: Lumbar Radiculopathy (ED), Lumbar Disc Herniation (ED), Iron Deficiency Anemia (ED) Additional Instructions: follow up with family doctor. have MRI of back. return sooner if worse. Forms: Patient Portal Access Quality - Quality Measures Quality Measures: N/A - Blood Pressure Screening Does Patient Have Any of the Following: Active Dx of HTN Blood Pressure Classification: Hypertensive Reading Systolic Measurement: 172 Diastolic Measurement: 102 Screening for High Blood Pressure: Patient Exclusion, Hx of HTN [G9744]
[2019-03-26 09:22] LABS: ABSOLUTE NEUTROPHIL COUNT 1.91; BASO % 1.6 % (0-6); EOS % 5.3 % (0-6); GRAN % 59.4 % (47-80); HEMATOCRIT 31.8 % (35.0-47.0); HEMOGLOBIN 9.9 gm/dl (11.6-16.0); LYMPH % 23.4 % (16-45); MEAN CELL VOLUME 92.7 fl (81-97); MEAN CORPUSCULAR HGB CONC 31.1 g/dl (32-36); MEAN PLATELET VOLUME 8.4 fl (7.4-10.4); MONO % 10.3 % (0-9); PLATELET COUNT 268 K/uL (130-400); RED BLOOD COUNT 3.43 M/uL (3.80-5.40); RED CELL DISTRIBUTION WIDTH 15.1 % (11.5-14.5); WHITE BLOOD COUNT W/O DIFF 3.2 K/uL (4.2-12.2)
[2019-03-26 09:24] LABS: MEAN CORPUSCULAR HEMOGLOBIN 28.8 pg (27-33)
[2019-03-26 09:31] LABS: INR 2.6; PROTHROMBIN TIME (PATIENT) 25.5 SECONDS (9.5-12.1)
[2019-03-26 09:34] LABS: BLOOD UREA NITROGEN 21 mg/dL (8-23); CREATININE 0.9 mg/dL (0.5-0.9); EST GLOMERULAR FILTRATION RATE > 60 mL/min
[2019-03-26 09:37] LABS: GLUCOSE,RANDOM 96 mg/dL (74-109)
--- NOTE | 2019-03-28 17:39 | CT SCAN REPORT ---
EXAM: CT SCAN LUMBAR SPINE WO CONTRAST HISTORY: PAIN. SHARP PAIN, LEFT SIDE OF LEG SINCE MARCH 23, 2019. TECHNIQUE: Noncontrast CT lumbar spine. COMPARISON: None. FINDINGS: There are no compression fractures. There is no suspicious osteoblastic lesion. There is mild anterolisthesis at L4-5 level. There are multiple Schmorl's nodes involving the endplates of multiple vertebral bodies. This is most prominent at the L3-4 level. Pedicle screws are present at L4 and L5 vertebral bodies. There is no sign of migration or associated lucency that would suggest loosening or infection. The posterior elements show no acute findings or destructive findings. Facet relationships are maintained. IMPRESSION: MARKED DEGENERATIVE DISC CHANGES AND DEGENERATIVE DISC RELATED CHANGES OF THE VERTEBRAL BODIES WITHOUT EVIDENCE OF ACUTE LUMBAR SPINE PATHOLOGY. JOB NUMBER: [id number] [facility]
== END 2019-03-26 11:24 | disposition home or self-care (01) ==
LOC: ER 08:28
DX: M54.16 Radiculopathy, lumbar region (principal); D50.9 Iron deficiency anemia, unspecified; M79.662 Pain in left lower leg; I50.9 Heart failure, unspecified; I48.91 Unspecified atrial fibrillation; Z79.01 Long term (current) use of anticoagulants
CPT/HCPCS: 72131; 80048; 85025; 85610; 99284

== ENCOUNTER 2019-03-27 14:42 | Emergency (ER) | payer MEDICARE, BC ==
--- NOTE | 2019-03-27 15:38 | Emergency Department Record ---
History of Present Illness - General Chief Complaint: Fall Injury Stated Complaint: FALL/RT WRIST INJURY Time Seen by Provider: 03/27/19 15:08 Source: Patient Mode of Arrival: Wheelchair Limitations: No limitations - History of Present Illness Initial Comments: pt fell in her garage injuring her r wrist. 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 Witnessed: No Place Fall Occurred: Home Loss of Consciousness: None Prolonged Down Time?: No Symptoms Prior to Fall: None Location - Extremities: Right: Forearm Severity: Mild Severity scale (1-10): 3 Quality: Aching Associated Symptoms: Denies - [place] Coma Scale Eye Response: (4) Open spontaneously Motor Response: (6) Obeys commands Verbal Response: (5) Oriented [place] Total: 15 - Related Data Previous Rx's Medication Instructions Recorded Hydrocodone/Acetaminophen [[place] 0.5 - 1 tab PO TID PRN #7 tab 03/27/19 5mg/325mg] Allergies Allergy/AdvReac Type Severity Reaction Status Date / Time indapamide [From LOZOL] Allergy Intermediate RASH Verified 03/27/19 14:55 propoxyphene napsylate Allergy Mild RASH Verified 03/27/19 14:55 [From DARVOCET-N 100] Travel Screening - Travel/Exposure Within Last 30 Days Have you traveled within the last 30 days?: No Review of Systems Reviewed: No additional complaints except as noted below Constitutional: Reports: As per HPI. Denies: Chills, Fever, Malaise, Night sweats, Weakness, Weight change Eyes: Reports: As per HPI. Denies: Eye discharge, Eye pain, Photophobia, Vision change ENT: Reports: As per HPI. Denies: Congestion, Dental pain, Ear pain, Epistaxis, Hearing loss, Throat pain Respiratory: Reports: As per HPI. Denies: Cough, Dyspnea, Hemoptysis, Stridor, Wheezes Cardiovascular: Reports: As per HPI. Denies: Arrhythmia, Chest pain, Dyspnea on exertion, Edema, Murmurs, Orthopnea, Palpitations, Paroxysmal nocturnal dyspnea, Rheumatic Fever, Syncope Endocrine: Reports: As per HPI. Denies: Fatigue, Heat or cold intolerance, Polydipsia, Polyuria Gastrointestinal: Reports: As per HPI. Denies: Abdominal pain, Constipation, Diarrhea, Hematemesis, Hematochezia, Melena, Nausea, Vomiting Genitourinary: Reports: As per HPI. Denies: Abnormal menses, Discharge, Dyspareunia, Dysuria, Frequency, Hematuria, Incontinence, Retention, Urgency Musculoskeletal: Reports: As per HPI. Denies: Arthralgia, Back pain, Gout, Joint swelling, Myalgia, Neck pain Skin: Reports: As per HPI. Denies: Bruising, Change in color, Change in hair/nails, Lesions, Pruritus, Rash Neurological: Reports: As per HPI. Denies: Abnormal gait, Confusion, Headache, Numbness, Paresthesias, Seizure, Tingling, Tremors, Vertigo, Weakness Psychiatric: Reports: As per HPI. Denies: Anxiety, Auditory hallucinations, Depression, Homicidal thoughts, Suicidal thoughts, Visual hallucinations Hematological/Lymphatic: Reports: As per HPI. 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 - RESPIRATORY Hx Respiratory Disorders: No - CARDIOVASCULAR Hx Cardio Disorders: Yes Hx Chest Pain: Yes Hx CHF: Yes Hx Pacemaker/Defib: Yes Comment:: afib - NEURO Hx Neuro Disorders: No - GI Hx GI Disorders: No - Hx Genitourinary Disorders: Yes Hx UTI: Yes - ENDOCRINE Hx Endocrine Disorders: Yes Hx Thyroid Disease: Yes (hypo) - MUSCULOSKELETAL Hx Musculoskeletal Disorders: Yes Hx Arthritis: Yes Comment:: injections in back - PSYCH Hx Psych Problems: No - HEMATOLOGY/ONCOLOGY Hx Hematology/Oncology Disorders: No Family Medical History Any Significant Family History?: Yes Hx Heart Disease: Father, Mother Physical Exam - General General Appearance: Alert, Oriented x3, Cooperative, Mild distress - Head Head exam: Normal inspection - Eye Eye exam: Normal appearance, PERRL, EOMI Pupils: Normal accommodation - ENT ENT exam: Normal exam, Mucous membranes moist, Normal external ear exam, Normal orophraynx Ear exam: Normal external inspection. negative: External canal tenderness Nasal Exam: Normal inspection. negative: Discharge, Sinus tenderness Mouth exam: Normal external inspection, Tongue normal Teeth exam: Normal inspection. negative: Dental caries Throat exam: Normal inspection. negative: Tonsillar erythema, Tonsillar exudate - Neck Neck exam: Normal inspection, Full ROM. negative: Tenderness - Respiratory Respiratory exam: Normal lung sounds bilaterally. negative: Respiratory distress - Cardiovascular Cardiovascular Exam: Regular rate, Normal rhythm, Normal heart sounds - GI/Abdominal GI/Abdominal exam: Soft, Normal bowel sounds. negative: Tenderness - Rectal Rectal exam: Deferred - exam: Deferred - Extremities Extremities exam: Normal capillary refill, Tenderness. negative: Normal inspection, Full ROM Image of Hand: 1 - contusions, tenderness - Back Back exam: Reports: Normal inspection, Full ROM. Denies: Muscle spasm, Rash noted, Tenderness - Neurological Neurological exam: Alert, CN II-XII intact, Normal gait, Oriented X3 - Psychiatric Psychiatric exam: Normal affect, Normal mood - Skin Skin exam: Dry, Intact, Normal color, Warm Course Vital Signs 03/27/19 14:48 Temperature 98.0 F Pulse Rate 84 Respiratory 20 Rate Blood Pressure 179/107 Pulse Ox 95 dr - Reevaluation(s) Reevaluation #1: 03/27/19 16:37 d/w dr mathis Disposition Disposition: Discharge Clinical Impression: Radius and ulna distal fracture Qualifiers: Encounter type: initial encounter Fracture type: closed Laterality: right Q ualified Code(s): S52.501A - Unspecified fracture of the lower end of right radius, initial encounter for closed fracture; S52.601A - Unspecified fracture of lower end of right ulna, initial encounter for closed fracture Disposition: Home, Self-Care Condition: (1) Good Instructions: Fall Prevention for Older Adults (ED), Wrist Fracture in Adults (ED) Additional Instructions: follow up with dr mathis. ice and elevate. return sooner if worse. Prescriptions: Hydrocodone/Acetaminophen [[place] 5mg/325mg] 0.5 - 1 tab PO TID PRN #7 tab PRN Reason: Pain - General Referrals: Arnoldo Mathis [DOCTOR OF OSTEOPATH] - [facility] [Provider Group] Forms: Patient Portal Access Quality - Quality Measures Quality Measures: N/A - Blood Pressure Screening Does Patient Have Any of the Following: Active Dx of HTN Blood Pressure Classification: Hypertensive Reading Systolic Measurement: 179 Diastolic Measurement: 107 Screening for High Blood Pressure: Patient Exclusion, Hx of HTN [G9744]
[2019-03-27] MEDS ORDERED: HYDROCODONE/APAP 5/325MG TABLET PO ONE (16:36)
--- NOTE | 2019-03-29 13:29 | RADIOLOGY REPORT ---
EXAM: RIGHT WRIST, THREE VIEWS HISTORY: PAIN AFTER FALL. TECHNIQUE: Three views of the right wrist were obtained. Comparison: None. FINDINGS: There is a comminuted fracture of the distal radius with impaction. The fracture is interarticular at the radial carpal joints. There is also a tiny avulsion fracture from the tip of the ulnar styloid. There is no dislocation. There is surrounding soft tissue swelling. 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 The bones are demineralized. IMPRESSION: 1. COMMINUTED AND IMPACTED DISTAL RIGHT RADIUS FRACTURE. 2. SMALL AVULSION FRACTURE FROM THE TIP OF THE ULNAR STYLOID. [facility]BER: [id number] [facility]
== END 2019-03-27 17:21 | disposition home or self-care (01) ==
LOC: ER 14:42
DX: S52.501A Unspecified fracture of the lower end of right radius, initial encounter for closed fracture (principal); S52.601A Unspecified fracture of lower end of right ulna, initial encounter for closed fracture; W01.10XA Fall on same level from slipping, tripping and stumbling with subsequent striking against unspecified object, initial encounter; Y92.008 Other place in unspecified non-institutional (private) residence as the place of occurrence of the external cause; I50.9 Heart failure, unspecified; I48.91 Unspecified atrial fibrillation; I10 Essential (primary) hypertension
CPT/HCPCS: 99283; 99284

== ENCOUNTER 2019-09-05 13:19 | Emergency (ER) | payer MEDICARE ==
--- NOTE | 2019-09-05 14:14 | Emergency Department Record ---
History of Present Illness - General Chief complaint: Extremity Problem Stated complaint: LT FOOT/RT SHOULDER PAIN Time Seen by Provider: 09/05/19 14:02 Source: Patient, RN notes reviewed Mode of Arrival: Ambulatory - History of Present Illness Initial comments: Patient states she was trimming her left great toe and injuried the toe and it is bleeding she said she banged her toe 5 days ago and it started bleeding. Patient is on coumadin and last check 2.0 per patient her priamary was Dr Gaxiola and has not seen Dr De La Cruz yet. [facility] Atrial fib and CHF Onset/Timin -: Week(s) Location: Left, Right, Foot, Shoulder History of Same: Yes Consistency: Constant Improves with: Nothing Worsens with: Exertion, Palpation Associated Symptoms: Denies other symptoms - Related Data Previous Rx's Medication Instructions Recorded Clindamycin HCl [Cleocin HCl] 300 mg PO TID #30 capsule 09/05/19 Allergies Allergy/AdvReac Type Severity Reaction Status Date / Time indapamide [From LOZOL] Allergy Intermediate RASH Verified 09/05/19 13:34 propoxyphene napsylate Allergy Mild RASH Verified 09/05/19 13:34 [From DARVOCET-N 100] Travel/Exposure Screening - Travel/Exposure Within Last 30 Days Have you traveled within the last 30 days?: No - Travel/Exposure Within Last Year Have you traveled outside the [place] in the last year?: No - Additonal Travel/Exposure Details Have you been exposed to anyone with a communicable illness?: No - Travel Symptoms Symptom Screening: None Review of Systems Reviewed: No additional complaints except as noted below Constitutional: Reports: As per HPI. Denies: Chills, Fever, Malaise, Night sweats, Weakness, Weight change Eyes: Reports: As per HPI. Denies: Eye discharge, Eye pain, Photophobia, Vision change ENT: Reports: As per HPI. Denies: Congestion, Dental pain, Ear pain, Epistaxis, Hearing loss, Throat pain Respiratory: Reports: As per HPI. Denies: Cough, Dyspnea, Hemoptysis, Stridor, Wheezes Cardiovascular: Reports: As per HPI. Denies: Arrhythmia, Chest pain, Dyspnea on exertion, Edema, Murmurs, Orthopnea, Palpitations, Paroxysmal nocturnal dyspnea, Rheumatic Fever, Syncope Endocrine: Reports: As per HPI. Denies: Fatigue, Heat or cold intolerance, Polydipsia, Polyuria Gastrointestinal: Reports: As per HPI. Denies: Abdominal pain, Constipation, Diarrhea, Hematemesis, Hematochezia, Melena, Nausea, Vomiting Genitourinary: Reports: As per HPI. Denies: Abnormal menses, Discharge, Dyspareunia, Dysuria, Frequency, Hematuria, Incontinence, Retention, Urgency Musculoskeletal: Reports: As per HPI. Denies: Arthralgia, Back pain, Gout, Joint swelling, Myalgia, Neck pain Skin: Reports: As per HPI. Denies: Bruising, Change in color, Change in hair/nails, Lesions, Pruritus, Rash Neurological: Reports: As per HPI. Denies: Abnormal gait, Confusion, Headache, Numbness, Paresthesias, Seizure, Tingling, Tremors, Vertigo, Weakness Psychiatric: Reports: As per HPI. Denies: Anxiety, Auditory hallucinations, Depression, Homicidal thoughts, Suicidal thoughts, Visual hallucinations Hematological/Lymphatic: Reports: As per HPI. 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 - RESPIRATORY Hx Respiratory Disorders: No - CARDIOVASCULAR Hx Cardio Disorders: Yes Hx Chest Pain: Yes Hx CHF: Yes Hx Pacemaker/Defib: Yes Comment:: afib - NEURO Hx Neuro Disorders: No - GI Hx GI Disorders: No - Hx Genitourinary Disorders: Yes Hx UTI: Yes - ENDOCRINE Hx Endocrine Disorders: Yes Hx Thyroid Disease: Yes (hypo) - MUSCULOSKELETAL Hx Musculoskeletal Disorders: Yes Hx Arthritis: Yes Comment:: injections in back - PSYCH Hx Psych Problems: No - HEMATOLOGY/ONCOLOGY Hx Hematology/Oncology Disorders: No Family Medical History Any Significant Family History?: Yes Hx Heart Disease: Father, Mother Physical Exam - General General Appearance: Alert, Oriented x3, Cooperative, No acute distress - Head Head exam: Normal inspection - Eye Eye exam: Normal appearance, PERRL Pupils: Normal accommodation - ENT ENT exam: Normal exam, Mucous membranes moist, Normal external ear exam, Normal orophraynx, TM's normal bilaterally Ear exam: Normal external inspection. negative: External canal tenderness Nasal Exam: Normal inspection. negative: Discharge, Sinus tenderness Mouth exam: Normal external inspection, Tongue normal Teeth exam: Normal inspection. negative: Dental caries Throat exam: Normal inspection. negative: Tonsillar erythema, Tonsillar exudate - Neck Neck exam: Normal inspection, Full ROM. negative: Tenderness - Respiratory Respiratory exam: Normal lung sounds bilaterally. negative: Respiratory distress - Cardiovascular Cardiovascular Exam: Regular rate, Normal rhythm, Normal heart sounds - GI/Abdominal GI/Abdominal exam: Soft, Normal bowel sounds. negative: Tenderness - Rectal Rectal exam: Deferred - exam: Deferred - Extremities Extremities exam: Normal inspection, Full ROM, Normal capillary refill, Tend erness, Other (ecchymosis of toes and ingrown nail with some bleeding ) - Back Back exam: Reports: Normal inspection, Full ROM. Denies: Muscle spasm, Rash noted, Tenderness - Neurological Neurological exam: Alert, Normal gait, Oriented X3, Reflexes normal - Psychiatric Psychiatric exam: Normal affect, Normal mood - Skin Skin exam: Dry, Intact, Normal color, Warm Course Vital Signs 09/05/19 13:39 Temperature 98.7 F Pulse Rate 74 Respiratory 18 Rate Blood Pressure 156/74 Pulse Ox 98 Medical Decision Making - Data Complexity MDM Data: Labs Ordered and/or Reviewed, X-Ray Ordered and/or Reviewed (No fracture of toes or shoulder and shoulder has chronic changes) - Lab Data Result diagrams: 09/05/19 14:45 Disposition Clinical Impression: Paronychia Disposition: Home, Self-Care Condition: (1) Good Instructions: Paronychia (ED) Additional Instructions: wash foot daily clindamycin thee times a day follow up with Dr. De La Cruz in one week. Prescriptions: Clindamycin HCl [Cleocin HCl] 300 mg PO TID #30 capsule Forms: Patient Portal Access Time of Disposition: 15:51 Quality - Quality Measures Quality Measures: N/A - Blood Pressure Screening Does Patient Have Any of the Following: No Blood Pressure Classification: Hypertensive Reading Systolic Measurement: 156 Diastolic Measurement: 74 Screening for High Blood Pressure: < Pre-Hypertensive BP, F/U Documented > [G8950] Pre-Hypertensive Follow-up Interventions: Referral to alternative/primary care provider.
[2019-09-05 14:55] LABS: ABSOLUTE NEUTROPHIL COUNT 3.13; BASO % 0.8 % (0-6); EOS % 4.1 % (0-6); GRAN % 64.4 % (47-80); HEMATOCRIT 30.8 % (35.0-47.0); HEMOGLOBIN 9.4 gm/dl (11.6-16.0); LYMPH % 21.2 % (16-45); MEAN CELL VOLUME 92.5 fl (81-97); MEAN CORPUSCULAR HEMOGLOBIN 28.2 pg (27-33); MEAN CORPUSCULAR HGB CONC 30.5 g/dl (32-36); MEAN PLATELET VOLUME 9.2 fl (7.4-10.4); MONO % 9.5 % (0-9); PLATELET COUNT 248 K/uL (130-400); RED BLOOD COUNT 3.33 M/uL (3.80-5.40); RED CELL DISTRIBUTION WIDTH 15.7 % (11.5-14.5); WHITE BLOOD COUNT W/O DIFF 4.9 K/uL (4.2-12.2)
--- NOTE | 2019-09-05 15:31 | RADIOLOGY REPORT ---
EXAMINATION: Left Foot, Minimum Three Views EXAM DATE: 09/05/2019 3:19 PM INDICATION: stubbed toe ENCOUNTER: Initial FINDINGS: Osteopenia, osteoarthritis, and chronic appearing deformity are noted. There is a nonacute appearing deformity of the proximal lateral corner of the proximal phalanx of the great toe. No evidence of acu te fracture. Dictated by: Bo Apple MD on 09/05/2019 3:25 PM. .
--- NOTE | 2019-09-05 15:33 | RADIOLOGY REPORT ---
EXAMINATION: Right Shoulder, Complete Minimum Two Views EXAM DATE: 09/05/2019 3:20 PM TECHNIQUE: AP, Grashey, and axillary INDICATION: stubbed toe,chronic shoulder pain COMPARISON: None ENCOUNTER: Initial FINDINGS: Well seated anterior anchor is at lateral right humeral neck Glenohumeral arthrosis, subacromial ossified synovial bilaterally Advanced right C4-C5 facet arthrosis with joint space widening IMPRESSION: Degenerative findings as above Dictated by: Donovan Eric MD on 09/05/2019 3:29 PM. .
[2019-09-05 16:13] LABS: INR 2.6; PROTHROMBIN TIME (PATIENT) 25.7 SECONDS (9.5-12.1)
== END 2019-09-05 16:27 | disposition home or self-care (01) ==
LOC: ER 13:19
DX: L03.032 Cellulitis of left toe (principal); M25.511 Pain in right shoulder; G89.29 Other chronic pain; I50.9 Heart failure, unspecified; I48.91 Unspecified atrial fibrillation; Z79.01 Long term (current) use of anticoagulants
CPT/HCPCS: 85025; 85610; 99284

== ENCOUNTER 2019-09-11 09:34 | Emergency (ER) | payer MEDICARE ==
[2019-09-11 10:44] LABS: ABSOLUTE NEUTROPHIL COUNT 2.12; BASO % 1.2 % (0-6); EOS % 3.8 % (0-6); GRAN % 61.8 % (47-80); HEMATOCRIT 27.1 % (35.0-47.0); HEMOGLOBIN 8.2 gm/dl (11.6-16.0); LYMPH % 19.5 % (16-45); MEAN CELL VOLUME 92.8 fl (81-97); MEAN CORPUSCULAR HGB CONC 30.3 g/dl (32-36); MEAN PLATELET VOLUME 8.7 fl (7.4-10.4); MONO % 13.7 % (0-9); PLATELET COUNT 259 K/uL (130-400); RED BLOOD COUNT 2.92 M/uL (3.80-5.40); RED CELL DISTRIBUTION WIDTH 15.9 % (11.5-14.5); WHITE BLOOD COUNT W/O DIFF 3.4 K/uL (4.2-12.2)
[2019-09-11 10:54] LABS: BLOOD UREA NITROGEN 18 mg/dL (8-23); CREATININE 0.8 mg/dL (0.5-0.9); EST GLOMERULAR FILTRATION RATE > 60 mL/min
[2019-09-11 10:55] LABS: INR 1.6; PROTHROMBIN TIME (PATIENT) 16.1 SECONDS (9.5-12.1)
[2019-09-11 10:56] LABS: GLUCOSE,RANDOM 110 mg/dL (74-109)
--- NOTE | 2019-09-11 13:28 | Emergency Department Record ---
History of Present Illness - General Chief Complaint: Recheck - Other Stated Complaint: RECHECK Time Seen by Provider: 09/11/19 09:57 Source: Patient Mode of arrival: Ambulatory Limitations: No limitations - History of Present Illness Initial Comments: pt came in for recheck of toe and concern for ecchymosis on r arm. she also states she has been having chest pressure. she is a poor historian Complaint: Wound re-check -: Unknown Returns Today for: Other Symptoms Since Prior Visit: Worsening swelling, Other Associated Symptoms: None Treatments Prior to Arrival: Given antibiotics on initial visit - Related Data Previous Rx's Medication Instructions Recorded Clindamycin HCl [Cleocin HCl] 300 mg PO TID #30 capsule 09/05/19 Allergies Allergy/AdvReac Type Severity Reaction Status Date / Time indapamide [From LOZOL] Allergy Intermediate RASH Verified 09/05/19 13:34 propoxyphene napsylate Allergy Mild RASH Verified 09/05/19 13:34 [From DARVOCET-N 100] Travel/Exposure Screening - Travel/Exposure Within Last 30 Days Have you traveled within the last 30 days?: No - Additonal Travel/Exposure Details Have you been exposed to anyone with a communicable illness?: No Review of Systems Reviewed: No additional complaints except as noted below Constitutional: Reports: As per HPI. Denies: Chills, Fever, Malaise, Weakness Eyes: Reports: As per HPI. Denies: Eye discharge, Eye pain, Vision change ENT: Reports: As per HPI. Denies: Congestion, Dental pain, Ear pain, Epistaxis, Throat pain Respiratory: Reports: As per HPI. Denies: Cough, Dyspnea, Hemoptysis, Stridor, Wheezes Cardiovascular: Reports: As per HPI. Denies: Arrhythmia, Chest pain, Dyspnea on exertion, Edema, Murmurs, Orthopnea, Palpitations, Paroxysmal nocturnal dyspnea, Syncope Endocrine: Reports: As per HPI. Denies: Fatigue, Heat or cold intolerance, Polydipsia, Polyuria Gastrointestinal: Reports: As per HPI. Denies: Abdominal pain, Diarrhea, Melena, Nausea, Vomiting Genitourinary: Reports: As per HPI. Denies: Abnormal menses, Discharge, Dyspareunia, Dysuria, Frequency, Hematuria Musculoskeletal: Reports: As per HPI, Arthralgia. Denies: Back pain, Gout, Joint swelling, Myalgia, Neck pain Skin: Reports: As per HPI. Denies: Bruising, Change in color, Change in hair/nails, Lesions, Pruritus, Rash Neurological: Reports: As per HPI. Denies: Abnormal gait, Confusion, Headache, Numbness, Paresthesias, Seizure, Tingling, Tremors, Vertigo, Weakness Psychiatric: Reports: As per HPI. Denies: Anxiety, Auditory hallucinations, Depression, Homicidal thoughts, Suicidal thoughts, Visual hallucinations Hematological/Lymphatic: Reports: As per HPI, Anemia, Easy bleeding, Easy bruising. 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 - RESPIRATORY Hx Respiratory Disorders: No - CARDIOVASCULAR Hx Cardio Disorders: Yes Hx Chest Pain: Yes Hx CHF: Yes Hx Pacemaker/Defib: Yes Comment:: afib - NEURO Hx Neuro Disorders: No - GI Hx GI Disorders: No - Hx Genitourinary Disorders: Yes Hx UTI: Yes - ENDOCRINE Hx Endocrine Disorders: Yes Hx Thyroid Disease: Yes (hypo) - MUSCULOSKELETAL Hx Musculoskeletal Disorders: Yes Hx Arthritis: Yes Comment:: injections in back - PSYCH Hx Psych Problems: No - HEMATOLOGY/ONCOLOGY Hx Hematology/Oncology Disorders: No Family Medical History Any Significant Family History?: Yes Hx Heart Disease: Father, Mother Physical Exam - General General Appearance: Alert, Oriented x3, Cooperative, Mild distress - Head Head exam: Normal inspection - Eye Eye exam: Normal appearance, PERRL, EOMI Pupils: Normal accommodation - ENT ENT exam: Normal exam, Mucous membranes moist, Normal external ear exam, Normal orophraynx Ear exam: Normal external inspection. negative: External canal tenderness Nasal Exam: Normal inspection. negative: Discharge, Sinus tenderness Mouth exam: Normal external inspection, Tongue normal Teeth exam: Normal inspection. negative: Dental caries Throat exam: Normal inspection. negative: Tonsillar erythema, Tonsillar exudate - Neck Neck exam: Normal inspection, Full ROM. negative: Tenderness - Respiratory Respiratory exam: Normal lung sounds bilaterally. negative: Respiratory distress - Cardiovascular Cardiovascular Exam: Regular rate, Normal rhythm, Systolic murmur (harsh). negative: Normal heart sounds - GI/Abdominal GI/Abdominal exam: Soft, Normal bowel sounds. negative: Tenderness - Rectal Rectal exam: Deferred - exam: Deferred - Extremities Extremities exam: Normal inspection, Full ROM, Normal capillary refill. negative: Tenderness - Back Back exam: Reports: Normal inspection, Full ROM. Denies: Muscle spasm, Rash noted, Tenderness - Neurological Neurological exam: Alert, CN II-XII intact, Normal gait, Oriented X3 - Psychiatric Psychiatric exam: Normal affect, Normal mood - Skin Skin exam: Dry, Intact, Normal color, Warm Course Vital Signs 09/11/19 09:39 Temperature 98.5 F Pulse Rate 89 Respiratory 20 Rate Blood Pressure 175/90 Pulse Ox 98 - Reevaluation(s) Reevaluation #1: 09/11/19 13:28 pt d/w dr pereira as pt tells me she has never had a heart murmur. dr pereira states pt has not had an echo for 6 yrs and agrees she needs one now. Reevaluation #2: 09/11/19 14:47 echo shows severe aortic stenosis and severe mitral regurg and severe l atrial enlargement Reevaluation #3: 09/11/19 14:53 d/w dr cunningham and dr pereira Medical Decision Making - Lab Data Result diagrams: 09/11/19 10:35 09/11/19 10:35 Lab Results 09/11/19 09/11/19 09/11/19 Range/Units 10:35 10:35 10:35 WBC 3.4 L (4.2-12.2) K/uL RBC 2.92 L (3.80-5.40) M/uL Hgb 8.2 L (11.6-16.0) gm/dl Hct 27.1 L (35.0-47.0) % MCV 92.8 (81-97) fl MCH 28.0 (27-33) pg MCHC 30.3 L (32-36) g/dl RDW 15.9 H (11.5-14.5) % Plt Count 259 (130-400) K/uL MPV 8.7 (7.4-10.4) fl Gran % 61.8 (47-80) % Lymphocytes % 19.5 (16-45) % Monocytes % 13.7 H (0-9) % Eosinophils % 3.8 (0-6) % Basophils % 1.2 (0-6) % Absolute Neutrophils 2.12 PT 16.1 H (9.5-12.1) SECONDS INR 1.6 Sodium 134 L (136-145) mmol/L Potassium 4.6 H (3.4-4.5) mmol/L Chloride 100 (98-107) mmol/L Carbon Dioxide 23.0 (22-29) mmol/L Anion Gap 11.0 (7-16) BUN 18 (8-23) mg/dL Creatinine 0.8 (0.5-0.9) mg/dL Estimated GFR > 60 mL/min Random Glucose 110 H (74-109) mg/dL Calcium 8.8 (8.8-10.2) mg/dL Troponin T < 0.010 (0-0.010) ng/mL NT-Pro-B Natriuret Pep 1126.00 H (<450) pg/mL Disposition Disposition: Transfer Clinical Impression: Severe aortic stenosis, Chest pressure Disposition: Acute Care Hospital Transfer Transfer To: [facility] Reason For Transfer: needs cardiology Accepting Physician: ori cunningham and kelli Time Discussed w/Accepting Physician: 14:47 Forms: Patient Portal Access Quality - Quality Measures Quality Measures: N/A - Blood Pressure Screening Does Patient Have Any of the Following: Active Dx of HTN Blood Pressure Classification: Hypertensive Reading Systolic Measurement: 175 Diastolic Measurement: 90 Screening for High Blood Pressure: Patient Exclusion, Hx of HTN [G9744]
== END 2019-09-11 16:03 | disposition short-term general hospital (02) ==
LOC: ER 09:34
DX: I35.0 Nonrheumatic aortic (valve) stenosis (principal); I50.9 Heart failure, unspecified; I48.91 Unspecified atrial fibrillation; Z79.01 Long term (current) use of anticoagulants
CPT/HCPCS: 80048; 83880; 84484; 85025; 85610; 93005; 93010; 93306; 93356; 99285